=== PATIENT | female | born 1945 | race Caucasian/White ===

== ENCOUNTER 2021-12-14 12:54 | Outpatient (REF) | payer SELFPAY ==
[2021-12-14 13:29] LABS: Mean Corpuscular HGB Conc 31 gm/dL (32-36); Mean Corpuscular Hemoglobin 28 pg (26-34); Mean Corpuscular Volume 88 fL (80-100); Platelet Count* 298 K/uL (140-440); Red Blood Count 3.62 m/uL (4.00-5.20); White Blood Count* 8.09 K/uL (4.50-11.00)
[2021-12-14 13:31] LABS: Albumin* 3.2 g/dL (3.3-5.0); Chloride* 104 mmol/L (96-114)
[2021-12-14 13:32] LABS: Potassium* 3.2 mmol/L (3.6-5.1); Sodium* 135 mmol/L (135-149)
[2021-12-14 13:34] LABS: Alkaline Phosphatase* 96 U/L (40-150); Aspartate Amino Transferase* 22 U/L (12-35); Bilirubin Total* 0.2 mg/dL (0.1-1.5); Carbon Dioxide* 23 mmol/L (20-32); Creatinine* 0.8 mg/dL (0.5-1.5); Estimated Glomerular Filt Rate 75 ml/min; Total Protein* 6.4 g/dL (6.0-8.3)
[2021-12-14 13:35] LABS: Alanine Aminotransferase* 13 U/L (4-35); Blood Urea Nitrogen* 9 mg/dL (7-30); Calcium* 8.5 mg/dL (8.4-10.6); Creatine Kinase* 65 U/L (41-117); Glucose* 102 mg/dL (60-115)
[2021-12-14 13:49] LABS: Slide Review Reflex No
[2021-12-14 14:33] LABS: Erythrocyte SedimentationRate* 51 mm/hr (2-20)
== END 2021-12-14 12:55 | disposition home or self-care (01) ==
LOC: NPINS 12:54
PROVIDERS: PCP Family Medicine; Visit Provider Family Medicine
DX: Z98.890 Other specified postprocedural states (principal)
CPT/HCPCS: 80053; 82550; 85027; 85651; 86140